=== PATIENT | female | born 1960 | race Caucasian/White ===

== ENCOUNTER 2020-03-06 14:14 | Emergency (ER) | payer OTHER, SELFPAY ==
--- NOTE | ~2020-03-06 | XR_ITS ---
EXAMINATION: XR chest 2V 03/06/2020 15:20 INDICATION: Sided chest pain PROCEDURE: PA and lateral views of the chest COMPARISON: No prior studies for comparison. FINDINGS: The lungs are clear. The cardiomediastinal silhouette is within normal limits. There are no pleural effusions. There is no pneumothorax suspected. IMPRESSION: 1: NO ACUTE CARDIOPULMONARY DISEASE. Reviewed, dictated and finalized at location A.
--- NOTE | 2020-03-06 14:24 | ECG_ITS ---
Measurements Intervals [place] Rate: 67 P: 44 NE: 158 QRS: 33 QRSD: 87 T: 36 QT: 412 QTc: 438 Interpretive Statements SINUS RHYTHM DELAYED PRECORDIAL R/S TRANSITION CANNOT RULE OUT SEPTAL INFARCT, AGE INDETERMINATE BASELINE ARTIFACT- I, III, AVL, AVF, V1, V4-V6 ABNORMAL ECG Electronically Signed On 03-06-2020 16:19:59 CDT by Bunny Wolfe D.O.
[2020-03-06 14:27] VITALS: BP 149/101; PULSE 70; RESP 20; TEMP 36.8; O2SAT 99
[2020-03-06 14:41] VITALS: BP 156/92; PULSE 69; RESP 14; O2SAT 100
[2020-03-06] MEDS: ASPIRIN 81 MG CHEWABLE TABLET 324 MG PO (14:56)
[2020-03-06 14:57] LABS: Basophils Absolute Auto 0.1 K/mm3 (0.0-0.1); Basophils Percent Auto 0.6 % (0.2-1.2); Eosinophils Absolute Auto 0.1 K/mm3 (0-0.3); Eosinophils Percent Auto 1.6 % (0-4.4); Hemoglobin 14.2 g/dL (12.0-15.0); Immature Granulocyte Absolute 0.03 K/mm3 (0.00-0.031); Immature Granulocyte Percent A 0.4 % (0-0.5); Lymphocytes Absolute Auto 2.77 K/mm3 (0.9-3.2); Lymphocytes Percent Auto 33.8 % (18.3-44.2); Mean Corpuscular Hemoglobin 29.8 pg (26-34); Mean Corpuscular Volume 90.1 fl (80-100); Mean Platelet Volume 11.3 fl (7.4-10.4); Monocytes Absolute Auto 0.6 K/mm3 (0.1-0.6); Monocytes Percent Auto 7.4 % (2.6-8.5); Neutrophils Absolute Auto 4.6 K/mm3 (1.3-6.7); Neutrophils Percent Auto 56.2 % (45.5-73.1); Platelet Count Result 162 k/mm3 (150-375); Red Blood Count 4.77 M/mm3 (4.2-5.4); Red Cell Distribution Width 13.2 % (11.5-14.5); White Blood Count 8.2 K/mm3 (4.5-10.0)
[2020-03-06 15:08] LABS: Prothrombin Time 13.1 Seconds (11.1-14.7)
[2020-03-06 15:09] LABS: Anion Gap 14.8 mmol/L (7-16); Blood Urea Nitrogen 22 mg/dL (7-17); Calcium 10.1 mg/dL (8.4-10.2); Carbon Dioxide 21 mmol/L (22-30); Chloride 105 mmol/L (98-107); Estimated Glomerular Filt Rate > 60; Glucose 100 mg/dL (65-105); Potassium 3.8 mmol/L (3.4-5.0); Sodium 137 mmol/L (137-145)
[2020-03-06 15:21] LABS: Troponin I < 0.012 ng/mL (0.000-0.034)
[2020-03-06 16:23] VITALS: BP 122/71; PULSE 57; RESP 12; O2SAT 100
[2020-03-06 16:37] VITALS: BP 125/74; PULSE 62; RESP 14; O2SAT 98
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
[2020-03-06 17:38] VITALS: BP 129/80; PULSE 58; RESP 15; O2SAT 100
[2020-03-06 17:56] LABS: Troponin I < 0.012 ng/mL (0.000-0.034)
== END 2020-03-06 17:39 | disposition home or self-care (01) ==
PROVIDERS: Emergency Medicine; Emergency Provider Family Medicine; PCP Internal Medicine
DX: F41.9 Anxiety disorder, unspecified (principal); I10 Essential (primary) hypertension; E11.9 Type 2 diabetes mellitus without complications; Z79.84 Long term (current) use of oral hypoglycemic drugs; Z87.891 Personal history of nicotine dependence; R94.31 Abnormal electrocardiogram [ECG] [EKG]
CPT/HCPCS: 36415; 71046; 80048; 84484; 85025; 85610; 85730; 93005; 99284; A9270